=== PATIENT | female | born 1960 | race Caucasian/White ===

== ENCOUNTER 2017-09-13 10:02 | Emergency (ER) | payer BC ==
[2017-09-13 11:10] VITALS: BP 147/89
--- NOTE | 2017-09-13 12:09 | UC ---
Throat Pain/Nasal Robinson HPI - HPI Summary HPI Summary: a few days of sore thraot and cold symtpoms - History of Current Complaint Chief Complaint: UCRespiratory Stated Complaint: HEAD CONGESTION Time Seen by Provider: 09/13/17 11:58 Hx Obtained From: Patient Hx Last Menstrual Period: n/a Onset/Duration: Sudden Onset, Lasting Days Severity: Moderate Associated Signs & Symptoms: Positive: Dysphagia - Allergies/Home Medications Allergies/Adverse Reactions: Allergies Allergy/AdvReac Type Severity Reaction Status Date / Time seasonal Allergy Congestion Uncoded 09/13/17 11:10 Home Medications: Home Medications Empril Bp Med 0.5 mg PO DAILY 09/13/17 [History Confirmed 09/13/17] Loratadine 10 mg PO DAILY 09/13/17 [History Confirmed 09/13/17] predniSONE TAB* [Deltasone TAB*] 2.5 - 5 mg PO DAILY PRN 09/13/17 [History Confirmed 09/13/17] PMH/Surg Hx/FS Hx/Imm Hx Previously Healthy: Yes - Surgical History Surgical History: Yes Surgery Procedure, Year, and Place: Ear -as child, T + A, Tubal Ligation, Oopherectomy, Rt ankle-plates + screws - Family History Known Family History: Positive: Hypertension - Social History Alcohol Use: Occasionally Substance Use Type: None Smoking Status (MU): Former Smoker When Did the Patient Quit Smoking/Using Tobacco: 2016 Review of Systems Constitutional: Negative Skin: Negative Eyes: Negative ENT: Sore Throat, Ear Ache, Sinus Congestion Respiratory: Cough Cardiovascular: Negative Gastrointestinal: Negative Genitourinary: Negative Motor: Negative Neurovascular: Negative Musculoskeletal: Negative Neurological: Negative Psychological: Negative Is Patient Immunocompromised?: No All Other Systems Reviewed And Are Negative: Yes Physical Exam Triage Information Reviewed: Yes Appearance: Well-Nourished, Ill-Appearing, Pain Distress Vital Signs: Initial Vital Signs Temp 98.1 F 09/13/17 11:00 Pulse 89 09/13/17 11:00 Resp 18 09/13/17 11:00 BP 147/89 09/13/17 11:00 Pulse Ox 98 09/13/17 11:00 Vital Signs Reviewed: Yes Eye Exam: Normal ENT: Positive: Pharyngeal erythema, TM red, Tonsillar swelling Dental Exam: Normal Neck exam: Normal Neck: Positive: Supple, Nontender, No Lymphadenopathy Respiratory Exam: Normal Respiratory: Positive: Chest non-tender, Lungs clear, Normal breath sounds Cardiovascular Exam: Normal Cardiovascular: Positive: RRR, No Murmur, Pulses Normal Abdominal Exam: Normal Abdomen Description: Positive: Nontender, No Organomegaly, Soft Bowel Sounds: Positive: Present Musculoskeletal Exam: Normal Musculoskeletal: Positive: Strength Intact, ROM Intact, No Edema Neurological Exam: Normal Neurological: Positive: Alert, Muscle Tone Normal Psychological Exam: Normal Skin Exam: Normal Throat Pain/Nasal Course/Dx - Course Course Of Treatment: hx obtained, exam performed ,meds reviewed, treated for serous otitis, pharyngitis - Differential Dx/Diagnosis Differential Diagnosis/HQI/PQRI: Albino's Angina, Otitis Media, Pharyngitis, Sinusitis Provider Diagnoses: serous otitis. pharynigits Discharge - Discharge Plan Condition: Stable Disposition: HOME Prescriptions: predniSONE TAB* [Deltasone TAB*] 40 mg PO DAILY #14 tab Patient Education Materials: Serous Otitis Media (ED) Referrals: Nisreen Dean MD [Primary Care Provider] - Additional Instructions: 1. take the medication as prescribed, then continue with decongestant for the next 2 weeks, 2. Increase fluid intake and get plenty of rest, cool mist humdification at night, warm fluids. 3. Follow up as needed
== END 2017-09-13 12:23 | disposition home or self-care (01) ==
LOC: UCCORT 10:02
DX: J02.9 Acute pharyngitis, unspecified (principal); H65.90 Unspecified nonsuppurative otitis media, unspecified ear
CPT/HCPCS: 99212; G0463